=== PATIENT | male | born 1975 | race Two or more races ===

== ENCOUNTER 2020-10-18 15:41 | Emergency (ER) | payer BC ==
[~2020-10-18] VITALS: Ht 170.2 cm; Wt 88.5 kg
[2020-10-18 16:31] VITALS: BP 144/90
--- NOTE | 2020-10-18 16:32 | NUR ---
ED Nurse Note:pt. c/o flul;hernandez symptoms and cough for 1 week, no fever, no sob
--- NOTE | 2020-10-18 16:49 | Emergency Room Report ---
History of Present Illness General Chief Complaint: Flu Like Symptoms Source: Patient Present Illness HPI 44-year-old male with history of tobacco smoke, hypertension currently taking medication here complaining of 1 week of intermittent nonbloody diarrhea, cough and congestion. Denies any chest pain shortness of breath. Denies fever and chills, headache and dizziness. Reports that he last tested negative for Covid 2 weeks ago. Patient is stable, with stable vital signs. Is in no distress. Has not taken medication for symptom relief. Denies drug use, however reports that he occasionally smokes tobacco. Denies recent travel. Allergies: Coded Allergies: No Known Allergies (Unverified , 10/18/20) COVID-19 Screening Contact w/high risk pt: Yes Experienced COVID-19 symptoms?: Yes COVID-19 Testing performed [employer]: Yes COVID-19 Screening: Negative COVID-19 COVID-19 Testing Source: nasal Patient History Past Medical History: see triage record Past Surgical History: none Pertinent Family History: none Social History: Reports: smoking Immunizations: UTD Reviewed Nursing Documentation: PMH: Agreed; PSxH: Agreed Nursing Documentation-PMH Past Medical History: No History, Except For Hx Hypertension: Yes Review of Systems All Other Systems: negative except mentioned in HPI Physical Exam Vital Signs Date Time Temp Pulse Resp B/P (MAP) Pulse Ox O2 Delivery O2 Flow Rate FiO2 10/18/20 15:58 98.1 92 16 144/90 (108) 97 Sp02 EP Interpretation: reviewed, normal General Appearance: no apparent distress, alert, GCS 15, non-toxic Head: normocephalic, atraumatic Eyes: bilateral eye normal inspection, bilateral eye PERRL ENT: hearing grossly normal, no angioedema, normal voice Respiratory: chest non-tender, no respiratory distress, no retraction, no accessory muscle use, speaking full sentences Cardiovascular #1: regular rate, rhythm, no edema Gastrointestinal: normal bowel sounds, non tender, soft, non-distended, no guarding, no rebound Rectal: deferred Genitourinary: no CVA tenderness Musculoskeletal: back normal Neurologic: alert, motor strength/tone normal, oriented x3, sensory intact, responsive, speech normal Psychiatric: judgement/insight normal, memory normal, mood/affect normal, no suicidal/homicidal ideation Skin: no rash Lymphatic: no adenopathy Medical Decision Making PA Attestation All diagnoses and treatment plans were reviewed and discussed with my supervising physician Dr. Mccarty Diagnostic Impression: Primary Impression: Viral syndrome Additional Impression: Upper respiratory disease ER Course 44-year-old male with history of tobacco smoke, hypertension currently taking medication here complaining of 1 week of intermittent nonbloody diarrhea, cough and congestion. Denies any chest pain shortness of breath. Denies fever and chills, headache and dizziness. Reports that he last tested negative for Covid 2 weeks ago. Patient is stable, with stable vital signs. Is in no distress. Has not taken medication for symptom relief. Denies drug use, however reports that he occasionally smokes tobacco. Denies recent travel. Ddx considered but are not limited to: strep pharyngitis, URI, tonsillitis, peritonsillar abscess, influneza, coronavirus Vital signs: are WNL, pt. is afebrile H&PE are most consistent with: Viral syndrome, upper respiratory disease, PUI Covid ORDERS: Chest x-ray, azithromycin, prednisone, loperamide ED INTERVENTIONS: None required at this time. DISCHARGE: At this time pt. is stable for d/c to home. Will provide printed patient care instructions, and any necessary prescriptions. Care plan and follow up instructions have been discussed with the patient prior to discharge. Given list of clinics for patient to get tested for Covid, advised patient to remain quarantine, at this time patient cannot be tested for COVID-19 here as we do not have the rapid test swabs here. Advised patient to return to emergency room worsening symptoms. This time patient is stable, has a normal chest x-ray, stating normal, afebrile and nontachycardic. Chest X-Ray Diagnostic Results Chest X-Ray Diagnostic Results : Chest X-Ray Ordered: Yes # of Views/Limited/Complete: 1 View Indication: Other EP Interpretation: Yes PA Xray: Interpretation reviewed, by supervising MD, and agrees with findings. Interpretation: no consolidation, no effusion, no pneumothorax Impression: No acute disease Electronically Signed by: Sarah COLLAZO Scrselam Text FINDINGS: A single one view chest is obtained. Vascularity is normal. The lung valdovinos are clear bilaterally. Cardiac and mediastinal silhouette are within normal limits. CP angles are sharp. The bony thorax appear unremarkable. IMPRESSION: NO ACUTE CARDIOPULMONARY DISEASE. Last Vital Signs Date Time Temp Pulse Resp B/P (MAP) Pulse Ox O2 Delivery O2 Flow Rate FiO2 10/18/20 16:31 92 16 10/18/20 16:31 98.1 144/90 97 Disposition: HOME, SELF-CARE Condition: Stable Scripts Loperamide HCl (Loperamide) 2 Mg Capsule 2 MG ORAL Q8HR, #20 CAP 0 Refills Prov: Sarah Christensen 10/18/20 Prednisone* (PREDNISONE*) 20 Mg Tablet 40 MG ORAL DAILY for 5 Days, #10 TAB Prov: Sarah Christensen 10/18/20 Azithromycin* (ZITHROMAX*) 250 Mg Tablet 250 MG ORAL DAILY, #6 TAB 0 Refills Take two tables once daily for 1 day, then one tablet once daily for 4 days. Prov: Sarah Christensen 10/18/20 Referrals: [facility],REFERRING (PCP) Patient Instructions: Upper Respiratory Infection, Adult Additional Instructions: Take medication as directed, follow-up with your primary care provider, I suggest he get tested for Covid, quarantine yourself for the time being, if worsening symptoms return to the emergency room Sarah Christensen Oct 18, 2020 16:49
[2020-10-18] MEDS ORDERED: ZITHROMAX250 MG ORAL (16:50)
[2020-10-18] MEDS ORDERED: IMODIUM2 MG ORAL (16:50)
[2020-10-18] MEDS ORDERED: PREDNISONE20 MG ORAL (16:50)
[2020-10-18 17:10] VITALS: BP 134/90
--- NOTE | 2020-10-18 17:12 | NUR ---
ER DISCHARGE NOTE: Patient is cleared to be discharged per ERMD, pt is aox4, on room air, with stable vital signs. pt was given dc and prescription instructions, pt was able to verbalize understanding, pt id band removed. pt is able to ambulate with steady gait. pt took all belongings.
--- NOTE | 2020-10-18 17:30 | Diagnostic Imaging Report ---
Procedure: XRAY Chest 1v Reason for study: Reason For Exam: SOB Comparison films: None. FINDINGS: A single one view chest is obtained. Vascularity is normal. The lung valdovinos are clear bilaterally. Cardiac and mediastinal silhouette are within normal limits. CP angles are sharp. The bony thorax appear unremarkable. IMPRESSION: NO ACUTE CARDIOPULMONARY DISEASE.
== END 2020-10-18 17:12 | disposition home or self-care (01) ==
LOC: EMR 16:05
DX: B34.9 Viral infection, unspecified (principal); J39.9 Disease of upper respiratory tract, unspecified; I10 Essential (primary) hypertension; F17.200 Nicotine dependence, unspecified, uncomplicated
CPT/HCPCS: 71045; 99283